=== PATIENT | female | born 1985 | race Caucasian/White ===

== ENCOUNTER 2021-01-28 19:07 | Inpatient (IN) | payer OTHER ==
[~2021-01-28] VITALS: Ht 160 cm; Wt 84.4 kg
[2021-01-28] MEDS ORDERED: IV NS 0.9% 1,000 ML BAG IV ONE (19:30)
[2021-01-28] MEDS ORDERED: ONDANSETRON 4 MG TAB.RAPDIS PO ONE (19:30)
[2021-01-28] MEDS ORDERED: ONDANSETRON 4 MG TAB.RAPDIS ONE (19:30)
--- NOTE | 2021-01-28 19:30 | NUR ---
CALLED FOR COVID SWAB
--- NOTE | 2021-01-28 19:35 | NUR ---
blood and covid swab sample collected and sent to the lab.
[2021-01-28 19:46] LABS: BASOPHILS # (AUTO) 0.1 /CMM (0.0-0.2); BASOPHILS % (AUTO) 0.7 % (0.0-2.0); EOSINOPHILS % (AUTO) 1.7 % (0.0-6.0); HEMATOCRIT 39 % (33-45); HEMOGLOBIN 12.9 g/dL (11.5-14.8); LYMPHOCYTES # (AUTO) 2.4 /CMM (0.8-4.8); MEAN CORPUSCULAR HGB CONC 33 g/dl (31.0-36.0); MEAN CORPUSCULAR VOLUME 80 fL (82-100); MONOCYTES # (AUTO) 0.5 /CMM (0.1-1.30); MONOCYTES % (AUTO) 5.4 % (2.0-12.0); NEUTROPHILS # (AUTO) 6.8 /CMM (1.8-8.9); NEUTROPHILS % (AUTO) 68.2 % (43.0-81.0); PLATELET COUNT (AUTO) 381 /CMM (150-450); RED BLOOD CELL COUNT(AUTO) 4.85 MIL/uL (4.0-5.2)
[2021-01-28 20:01] LABS: ALANINE AMINOTRANSFERASE 22 U/L (12-78); ALBUMIN 3.6 g/dL (3.4-5.0); ALKALINE PHOSPHATASE 84 U/L (46-116); ASPARTATE AMINOTRANSFERASE 20 U/L (15-37); BILIRUBIN,DIRECT 0.1 mg/dL (0.0-0.2); BILIRUBIN,TOTAL 0.3 mg/dL (0.2-1.0); CALCIUM, SERUM 9.3 mg/dL (8.5-10.1); CARBON DIOXIDE 26 mmol/L (21-32); CHLORIDE 100 mmol/L (98-107); CREATININE 0.7 mg/dL (0.6-1.3); GLUCOSE 125 mg/dL (74-106); POTASSIUM 3.6 mmol/L (3.5-5.1); SODIUM SERUM 136 mmol/L (136-145); TOTAL PROTEIN, SERUM 7.8 g/dL (6.4-8.2); UREA NITROGEN, BLOOD 17 mg/dL (7-18)
--- NOTE | 2021-01-28 20:23 | NUR ---
Call from lab. Rapid covid negative.
[2021-01-28] MEDS ORDERED: HUM10VIA SQ (21:07)
[2021-01-28] MEDS ORDERED: ASPI-1420 PO (21:10)
[2021-01-28] MEDS ORDERED: METF-440 PO (21:10)
[2021-01-28 21:25] VITALS: BP 108/64
--- NOTE | 2021-01-28 21:25 | NUR ---
MS CADASTRAL ENGINEER NOTE RECEIVED PATIENT VIA GURNEY. AMBULATED WITH ASSISTANCE TO BED. A/OX4. TOLERATING ROOM AIR. RESPIRATIONS ARE EVEN AND UNLABORED. NO S/S SB NOTED. C/O PAIN IN RIGHT KNEE. CURRENTLY WEARING A KNEE RACE. STATES PAIN IS 6/10. DOES NOT WANT ANYTHING FOR PAIN MANAGEMENT. INFORMED ME SHE WILL CALL ME IF SHE WANTS PAIN MEDICATION. IN NO APPARENT DISTRESS. IV ACCESS IN LAC#18 PATENT AND SALINE LOCKED. SPRINKLER DRIVER OBTAINED VITAL SIGNS AND BELONGING LIST. INITIAL PHYSICAL ASSESSMENT COMPLETED AT THIS TIME. SKIN ASSESSMENT COMPLETED, SKIN INTACT. WILL OBTAIN CONSENT FOR PROCEDURE AD PLACE IN CHART. BED IS LOW AND LOCKED, HOB ELEVATED IN SEMI FOWLERS SIDE RAILS UP X2. CALL LIGHT WITHIN REACH. PROVIDED EDUCATION ON USE. WILL CONTINUE TO MONITOR THROUGHOUT SHIFT.
[2021-01-28] MEDS ORDERED: MAG HYDROX/AL HYDROX/SIMETH 30 ML UDC PO PRN (21:30)
[2021-01-28] MEDS ORDERED: ZOLPIDEM TARTRATE 5 MG TABLET PO PRN (21:30)
[2021-01-28] MEDS ORDERED: ONDANSETRON HCL/PF 4 MG/2 ML VIAL IVP PRN (21:30)
[2021-01-28] MEDS ORDERED: ACETAMINOPHEN 325 MG TABLET PO PRN (21:30)
[2021-01-28] MEDS ORDERED: MAGNESIUM HYDROXIDE 30 ML UDC PO PRN (21:30)
[2021-01-28] MEDS ORDERED: Z GUARD REMEDY 2 OZ OINT TP PRN (21:30)
--- NOTE | 2021-01-28 21:30 | NUR ---
Manny knutson in ED - 01/28/21 at 2233 by JONI PT TRANSFERED PER ACLS PROTOCOL
[2021-01-29] MEDS ORDERED: INSULIN REGULAR, HUMAN 100 UNIT/ML 3 ML VIAL SQ PRN
--- NOTE | 2021-01-29 | NUR ---
MS RN NOTE PLACED NPO SIGN OUTSIDE OF PATIENTS ROOM. CLEARED TABLE OF FOOD AND DRINKS. INFORMED PATIENT SHE IS NPO POST MIDNIGHT. PATIENT UNDERSTOOD. WILL CONTINUE TO MONITOR THROUGHOUT SHIFT.
[2021-01-29] MEDS: BLOOD SUGAR DIAGNOSTIC 1 EACH STRIP IN SCH ×4 (00:03→17:58)
--- NOTE | 2021-01-29 00:09 | NUR ---
MS RN NOTE ACCU CHECK Q6HR , 0000, BS 159 - NO INSULIN COVERAGE D/T NPO FOR SURGERY
--- NOTE | 2021-01-29 05:50 | NUR ---
ms rn note 0600 accu check bs 234 - no insulin coverage given d/t npo for surgery
[2021-01-29 05:51] LABS: BASOPHILS # (AUTO) 0.1 /CMM (0.0-0.2); BASOPHILS % (AUTO) 0.7 % (0.0-2.0); EOSINOPHILS % (AUTO) 2.1 % (0.0-6.0); HEMATOCRIT 35 % (33-45); HEMOGLOBIN 11.8 g/dL (11.5-14.8); MEAN CORPUSCULAR HGB CONC 34 g/dl (31.0-36.0); MEAN CORPUSCULAR VOLUME 80 fL (82-100); MONOCYTES # (AUTO) 0.5 /CMM (0.1-1.30); MONOCYTES % (AUTO) 5.1 % (2.0-12.0); NEUTROPHILS # (AUTO) 6.4 /CMM (1.8-8.9); NEUTROPHILS % (AUTO) 70.1 % (43.0-81.0); PLATELET COUNT (AUTO) 246 /CMM (150-450); RED BLOOD CELL COUNT(AUTO) 4.44 MIL/uL (4.0-5.2); WHITE BLOOD COUNT (AUTO) 9.1 K/uL (4.3-11.0)
[2021-01-29 06:02] LABS: CALCIUM, SERUM 8.2 mg/dL (8.5-10.1); CREATININE 0.7 mg/dL (0.6-1.3); MAGNESIUM 1.9 mg/dL (1.8-2.4); PHOSPHORUS 3.5 mg/dL (2.5-4.9); POTASSIUM 4.1 mmol/L (3.5-5.1)
[2021-01-29 06:21] LABS: THYROID STIMULATING HORMONE 1.34 uIU/mL (0.358-3.74)
--- NOTE | 2021-01-29 07:06 | NUR ---
MS RN CLOSING NOTE RESTING IN BED. A/OX4. TOLERATING ROOM AIR. NO RESP DISTRESS. C/O PAIN THAT PATIENT REQUESTED PAIN MEDICATION. NO DISTRESS. IV ACCESS MAINTAINED IN LAC#18. BED REMAINS LOW AND LOCKED, HOB ELEVATED IN SEMI FOWLERS SIDE RAILS UP X2. CALL LIGHT WITHIN REACH. WILL ENDORSE TO NEXT SHIFT.
[2021-01-29] MEDS: PANTOPRAZOLE 40 MG TABLET.DR PO SCH (07:30)
[2021-01-29] MEDS ORDERED: METFORMIN 500 MG TABLET PO SCH (07:30)
--- NOTE | 2021-01-29 07:30 | NUR ---
ms rn received on bed, awake,alert,oriented x4,not in any form of distress, s/p fall,site w/ immobilizer,knee swollen,denies pain at this time,all needs attended.
[2021-01-29] MEDS ORDERED: ATOR40TA PO (07:43)
[2021-01-29] MEDS ORDERED: HYDR-3972 PO (07:43)
[2021-01-29] MEDS ORDERED: IBUP-1955 PO (07:44)
[2021-01-29 08:00] VITALS: BP 105/68
--- NOTE | 2021-01-29 09:00 | NUR ---
ms reddy npo at this time.
[2021-01-29] MEDS ORDERED: ANESTHESIA TRAY IN PYXIS 1 EA TRAY MC ONE (10:44)
[2021-01-29] MEDS ORDERED: BACITRACIN 50000 UNITS/VIAL ONE (11:27)
[2021-01-29] MEDS ORDERED: BUPIVACAINE 0.5 % PF 150 MG/30 ML VIAL ONE (11:27)
--- NOTE | 2021-01-29 12:00 | NUR ---
ms rn went down for surgery of right knee orif.
[2021-01-29] MEDS ORDERED: MIDAZOLAM HCL 2 MG/2ML VIAL ONE (12:43)
[2021-01-29] MEDS ORDERED: FENTANYL PF 100MCG/2ML AMPUL ONE (12:43)
[2021-01-29] MEDS ORDERED: ROCURONIUM BROMIDE 50 MG/5 ML ONE (12:44)
[2021-01-29] MEDS ORDERED: HYDROMORPHONE 1 MG/1 ML DISP.SYRIN ONE (14:51)
[2021-01-29 16:00] VITALS: BP 123/78
[2021-01-29] MEDS: METFORMIN 500 MG TABLET PO SCH (17:58)
--- NOTE | 2021-01-29 18:00 | NUR ---
ms rn bs -427- coverage given and start on metformin,per md order.
--- NOTE | 2021-01-29 19:00 | NUR ---
ms rn on bed, no distress noted.
--- NOTE | 2021-01-29 19:30 | NUR ---
MS RN OPENING NOTE RECEIVED PATIENT IN BED. A/OX4. TOLERATING ROOM AIR. RESPIRATIONS ARE EVEN AND UNLABORED. NO S/S SOB NOTED. C/O PAIN IN RIGHT LEG, INFORMED WILL SEE WHEN PAIN MEDICATION IS DUE. IN NO APPARENT DISTRESS. IV ACCESS IN LAC#18. BED IS LOW AND LOCKED, HOB ELEVATED IN SEMI FOWLERS SIDE RAILS UP X2. CALL LIGHT WITHIN REACH. WILL CONTINUE TO MONITOR THROUGHOUT SHIFT.
[2021-01-29 20:00] VITALS: BP 118/72
[2021-01-29] MEDS: ANCEF 1 GM/50 ML D5W IV SCH ×2 (20:35)
[2021-01-29] MEDS: HYDROCODONE/APAP 5/325MG TABLET PO PRN (20:38)
--- NOTE | 2021-01-29 21:04 | NUR ---
RN NOTE PER SHIFT REPORT PATIENT BLOOD SUGAR WAS 427. 10 UNITS GIVEN WELL METFORMIN. DAY RN STATED RECHECK BLOOD SUGAR AT 2100. 2100 BLOOD SUGAR IS 419. REPEAT 436. PLACE A STAT GLUCOSE RANDOM READING. CALLED LAB TO INFORM THEM THE STAT ORDER. AWAITING RESULTS TO INFORM MD DIRECTOR OF PROGRAMMING. Addendum: 01/29/21 at 2209 by ESTEFANÍA CASTILLO RN MS MCCOY NOTE - please excuse the typo
--- NOTE | 2021-01-29 22:09 | NUR ---
MS RN NOTE LAB CALLED FOR A CRITICAL LAB BLOOD SUGAR 450. CALLED [employer]ULT[employer] CRAFT MAINTENANCE TECHNICIAN MD. DR. ROSANNA OREILYL TO INFORM HIM OF BLOOD SUGAR. INFORMED HIM OF CURRENT SLIDING SALE. PATIENT ALSO FEELS VERY THIRSTY WELL FEET BURNING. MD STATED TO CHANGE SLIDING SCALE TO MODERATE SLIDING SCALE. MD ORDERS READ BACK NOTED AND CARRIED OUT.
[2021-01-29] MEDS: BLOOD SUGAR DIAGNOSTIC 1 EACH STRIP VI SCH (22:19)
[2021-01-29] MEDS ORDERED: DEXTROSE 50%-WATER 50 ML DISP.SYRIN IV PRN ×2 (22:30)
[2021-01-29] MEDS ORDERED: *INSULIN REGULAR(HUMULIN R)HUM 100 UNIT/ML VIAL SQ PRN (22:30)
[2021-01-29] MEDS: MORPHINE SULFATE INJ 2 MG/ML DISP.SYRIN IV PRN (22:55)
[2021-01-30] MEDS: HYDROCODONE/APAP 5/325MG TABLET PO PRN ×4 (01:11→20:41)
[2021-01-30] MEDS: MORPHINE SULFATE INJ 2 MG/ML DISP.SYRIN IV PRN ×2 (03:16→10:16)
[2021-01-30] MEDS: ANCEF 1 GM/50 ML D5W IV SCH ×2 (04:46)
[2021-01-30] MEDS: BLOOD SUGAR DIAGNOSTIC 1 EACH STRIP VI SCH ×4 (06:00→21:27)
[2021-01-30] MEDS: INSULIN REGULAR, HUMAN 100 UNIT/ML 3 ML VIAL SQ PRN ×3 (06:05→17:20)
--- NOTE | 2021-01-30 07:03 | NUR ---
MS RN CLOSING NOTE PATIENT RESTING IN BED. A/OX4. TOLERATING ROOM AIR. NO RESP DISTRESS.MANAGED PAIN WITH NORCO AND MORPHINE. NO DISTRESS. IV ACCESS MAITAINED IN LAC#18. BED REMAINS LOW AND LOCKED, HOB ELEVATED IN SEMI FOWLERS SIDE RAILS UP X2. CALL LIGHT WITHIN REACH. WILL ENDORSE TO ONCOMING SHIFT.
--- NOTE | 2021-01-30 07:17 | NUR ---
MS RN NOTES PATIENT IN BED ALERT ORIENTED X 4. NO ACUTE DISTRESS NOTED. BREATHING UNLABORED. IV ACCESS PATIENT AND INTACT, NO REDNESS , NO SWELLING NOTED. RIGHT LOWER EXTREMITY SURGICAL DRESSING CLEAN DRY AND INTACT WITH BRACE ON, NO BLEEDING NOTED. SAFETY MEASURES IN PLACE. CALL LIGHT WITHIN REACH. WILL CONTINUE TO MONITOR ACCORDINGLY
[2021-01-30] MEDS: PANTOPRAZOLE 40 MG TABLET.DR PO SCH (07:45)
[2021-01-30 08:00] VITALS: BP 115/71
[2021-01-30] MEDS: METFORMIN 500 MG TABLET PO SCH ×2 (08:54→17:14)
--- NOTE | 2021-01-30 09:17 | NUR ---
MS RN NOTES CLARIFIED DIET ORDER WITH DR CHRISTOPH SIU WITH NEW ORDER FOR DIABETIC DIET , ORDER CLARIFIED AND READBACK WITH MD, NOTED AND CARRIED OUT
[2021-01-30 16:00] VITALS: BP 122/74
--- NOTE | 2021-01-30 19:00 | NUR ---
MS RN NOTES PATIENT IN BED ALERT ORIENTED X 4. NO ACUTE DISTRESS NOTED. BREATHING UNLABORED. IV ACCESS PATIENT AND INTACT, NO REDNESS , NO SWELLING NOTED. RIGHT LOWER EXTREMITY SURGICAL DRESSING CLEAN DRY AND INTACT WITH BRACE ON, NO BLEEDING NOTED. NEEDS ATTENDED AND ANTICIPATED. SAFETY MEASURES IN PLACE. CALL LIGHT WITHIN REACH. WILL ENDORSE TO NIGHT NURSE FOR CONTINUITY OF CARE.
--- NOTE | 2021-01-30 19:45 | NUR ---
MS RN NOTES RECEIVED ON BED A/O X4,NO SOB,S/O EIGHT KNEE SURGERY,DRESSING INTACT AND DRY,KNEE IMMOBILIZER IN USED.SALINE LOCK LEFT AC INTACT AND PATENT.PAIN TOLERABLE AT THE MOMENT.CALL LIGHT IN REACH,NEEDS ANTICIPATED.
[2021-01-30 20:00] VITALS: BP 109/70
--- NOTE | 2021-01-30 20:41 | NUR ---
MS RN NOTES PAIN MANAGEMENT C/O RIGHT KNEE PAIN, 6/20 ON PAIN SCALE, MEDICATED WITH NORCO 5/325MG,1 TAB PO ORDERED FOR MODERATE PAIN.
--- NOTE | 2021-01-30 22:00 | NUR ---
MS RN NOTES ACCU-CHECK BLOOD SUGAR CHECK 114,NO INSULIN COVERAGE.
--- NOTE | 2021-01-31 01:00 | NUR ---
MS RN NOTES SOUND ASLEEP,WITH NORMAL BREATHING PATTERN
[2021-01-31] MEDS: BLOOD SUGAR DIAGNOSTIC 1 EACH STRIP VI SCH ×3 (05:23→17:50)
--- NOTE | 2021-01-31 05:47 | NUR ---
MS RN NOTES ACCU-CHECK BLOOD SUGAR CHECK 264,COVERED WITH HUMULIN R 9 UNITS PER AC MODERATE SLIDING SCALE.
[2021-01-31] MEDS: INSULIN REGULAR, HUMAN 100 UNIT/ML 3 ML VIAL SQ PRN ×2 (05:49→11:50)
--- NOTE | 2021-01-31 06:43 | NUR ---
MS RN NOTES AWAKE,AMBULATE TO THE RESTROOM
--- NOTE | 2021-01-31 06:45 | NUR ---
MS RN NOTES PAIN MANAGEMENT EFFECTIVE,PAIN TOLERABLE THIS TIME.DRESSING TO RIGHT KNEE REMAINS INTACT AND DRY.CALL LIGHT IN REACH,NEEDS ATTENDED.
[2021-01-31] MEDS: PANTOPRAZOLE 40 MG TABLET.DR PO SCH (07:48)
[2021-01-31 07:59] VITALS: BP 128/84
--- NOTE | 2021-01-31 08:00 | NUR ---
RN Opening note Received patient in bed AO x 4, patient s/p patella ORIF denies pain except repositioned and actively, skin is warm to touch keep clean/dry, intact IV site on left AC 18g. Respiratory even and unlabored on room air, no sob or distress observed. Kept elevated HOB for ensure airway and aspiration precaution also lowered bed position for safe. Call light within reach, will continue to monitor for safety.
[2021-01-31] MEDS: METFORMIN 500 MG TABLET PO SCH ×2 (08:52→17:50)
[2021-01-31] MEDS: MORPHINE SULFATE INJ 2 MG/ML DISP.SYRIN IV PRN (15:01)
[2021-01-31 16:00] VITALS: BP 117/79
--- NOTE | 2021-01-31 17:30 | NUR ---
Patient discharge to home, given discharge instruction include quill picking machine operator prescription meds/side effect, also administered flue shot given information about side effects and benefits. Patient in stable condition left room escorted by staff to the private car.
--- NOTE | 2021-01-31 18:49 | NUR ---
RN Closing note Patient on bed resting, no appears distress or discomfort. Patient discharge to home, given discharge instruction include and information about home health [facility] and [facility]. Patient in stable condition, skin is warm to touch, keep clean/dry. Respiratory even and unlabored on chiara air. Keep elevated HOB for ensure airway and aspiration precaution, also lowest bed position for safety. Call light within reach, will endorse to date night sitter.
== END 2021-01-31 19:25 | disposition home health service (06) | DRG 517 ==
LOC: ER 19:17 → MED 20:22
PROVIDERS: ADMIT Registered Nurse; ATTEND Internal Medicine
PROC: 0QSD04Z Reposition Right Patella with Internal Fixation Device, Open Approach (ICD-10-PCS; principal; 2021-01-29)
DX: S82.001A Unspecified fracture of right patella, initial encounter for closed fracture (principal); E66.9 Obesity, unspecified; Z68.32 Body mass index [BMI] 32.0-32.9, adult; E11.9 Type 2 diabetes mellitus without complications; W01.0XXA Fall on same level from slipping, tripping and stumbling without subsequent striking against object, initial encounter; Y93.9 Activity, unspecified; Y92.89 Other specified places as the place of occurrence of the external cause; Z79.84 Long term (current) use of oral hypoglycemic drugs; Z79.4 Long term (current) use of insulin; Z20.822 Contact with and (suspected) exposure to COVID-19
CPT/HCPCS: 36415; 71045-TC; 73562-TC; 80048-TC; 80061-TC; 80076-TC; 82945-TC; 82962-TC; 83735-TC; 83880; 84100-TC; 84443-TC; 84484-TC; 84703-TC; 85025-TC; 85730-TC; 87081-TC; 97116-TC; 97530-TC; C1713; G0378; J0690; J1100; J1170; J1815; J2250; J2270; J2704; J3010; J3490; J7030; J7050; J7060; Q0162

== ENCOUNTER 2021-05-07 19:56 | Inpatient (IN) | payer OTHER ==
[~2021-05-07] VITALS: Ht 160 cm; Wt 82.6 kg
[~2021-05-07 19:56] MED LIST: ASPI-1420 PO; ATOR40TA PO; HUM10VIA SQ; HYDR-3972 PO; IBUP-1955 PO; METF-440 PO
--- NOTE | 2021-05-07 20:49 | NUR ---
MS MLT NOTE PT TRANSPORTED VIA WHEELCHAIR TO UNIT AT THIS TIME. PT ADMITTED FOR ORIF RIGHT PATELLA SURGERY ON 05/08/21. DR. JOHNSON WILL BE PERFORMING THE CASE. A/O X4. PT STABLE ON ROOM AIR. NO SOB OR S/S OF RESPIRATORY DISTRE/SS NOTED. PT DENIES PAIN OR DISCOMFORT AT THIS TIME. PT STATED THAT SHE HAS BEEN NPO SINCE 1830 ON 05/07/21. LAST VOID AND BM ON 05/07/21. PT'S SKIN IS INTACT. BRACE NOTED ON RIGHT KNEE. PT ORIENTED TO STAFF, ROOM, AND UNIT. BELONGINGS ACCOUNTED FOR AND BELONGINGS LIST SIGNED BY PT. SAFETY PRECAUTIONS IN PLACE AND MAINTAINED AT ALL TIMES. BED IN LOWEST LOCKED POSITION, HOB ELEVATED, SIDE RAILS UP X2. CALL LIGHT AND TABLE WITHIN REACH. WILL CONTINUE TO MONITOR.
[2021-05-08] VITALS (9 sets, daily range): BP systolic 103–114; BP diastolic 58–76
[2021-05-08 04:49] LABS: BASOPHILS # (AUTO) 0.1 /CMM (0.0-0.2); BASOPHILS % (AUTO) 0.9 % (0.0-2.0); EOSINOPHILS % (AUTO) 2.4 % (0.0-6.0); HEMATOCRIT 34 % (33-45); HEMOGLOBIN 11.4 g/dL (11.5-14.8); LYMPHOCYTES # (AUTO) 2.4 /CMM (0.8-4.8); LYMPHOCYTES % (AUTO) 31.2 % (20.0-44.0); MEAN CORPUSCULAR HGB CONC 33 g/dl (31.0-36.0); MEAN CORPUSCULAR VOLUME 79 fL (82-100); MONOCYTES # (AUTO) 0.6 /CMM (0.1-1.30); MONOCYTES % (AUTO) 7.3 % (2.0-12.0); NEUTROPHILS # (AUTO) 4.5 /CMM (1.8-8.9); NEUTROPHILS % (AUTO) 58.2 % (43.0-81.0); PLATELET COUNT (AUTO) 333 /CMM (150-450); RED BLOOD CELL COUNT(AUTO) 4.34 MIL/uL (4.0-5.2); WHITE BLOOD COUNT (AUTO) 7.8 K/uL (4.3-11.0)
[2021-05-08 04:50] LABS: BILIRUBIN,URINE NEGATIVE (NEGATIVE); COLOR,URINE YELLOW (YELLOW); LEUKOCYTE ESTERASE ,URINE NEGATIVE (NEGATIVE); NITRITE, URINE NEGATIVE (NEGATIVE); PROTEIN,URINE NEGATIVE (NEGATIVE); UGLUCOSE >=1000 mg/dL (NEGATIVE); UROBILINOGEN,URINE 0.2 EU/dL (0.2)
[2021-05-08 04:55] LABS: CALCIUM, SERUM 8.3 mg/dL (8.5-10.1); CREATININE 0.7 mg/dL (0.6-1.3)
[2021-05-08 05:04] LABS: BACTERIA,URINE Few /HPF (None Seen); RBC,URINE 0-2 /HPF (0-2); SQUAMOUS EPITHELIAL CELL,UR Few /HPF (None Seen)
[2021-05-08] MEDS ORDERED: BUPIVACAINE 0.5 % PF 150 MG/30 ML VIAL ONE (07:19)
[2021-05-08] MEDS ORDERED: BACITRACIN 50000 UNITS/VIAL ONE (07:19)
[2021-05-08] MEDS ORDERED: VANCOMYCIN 1 GM VIAL ONE (07:19)
--- NOTE | 2021-05-08 07:40 | NUR ---
MS RN OPENING NOTES RECEIVED PATIENT ASLEEP, EASY TO AROUSE. ALERT AND ORIENTED X 4. PATIENT GOING FOR ORIF RIGHT PATELLA TODAY. PATIENT ON RA TOLERATING WELL. NO SIGNS OF DISTRESS. BREATHING IS EVEN AND UNLABORED. IV ACCESS R WRIST#22 PATENT AND INTACT. BED MAINTAINED ON LOWEST POSITION AND LOCKED WITH SIDE RAILS UP X 2. CALL LIGHT IS WITHIN REACH. WILL CONTINUE TO MONITOR THROUGHOUT SHIFT.
--- NOTE | 2021-05-08 09:05 | NUR ---
MS RN NOTES PATIENT WAS TRANSPORTED OUT OF UNIT TO OPERATING ROOM WITH STABLE VITAL SIGNS BY PAT, RN AND ONE OTHER STAFF MEMBER.
[2021-05-08] MEDS ORDERED: FENTANYL PF 250MCG/5ML AMPUL ONE (09:50)
[2021-05-08] MEDS ORDERED: MIDAZOLAM HCL 2 MG/2ML VIAL ONE (09:50)
[2021-05-08] MEDS ORDERED: HYDROMORPHONE INJ 2 MG/ML DISP.SYRIN ONE (09:50)
[2021-05-08] MEDS ORDERED: GLYCOPYRROLATE 0.2 MG/ML VIAL ONE (10:17)
[2021-05-08] MEDS ORDERED: FENTANYL PF 100MCG/2ML AMPUL ONE (11:43)
--- NOTE | 2021-05-08 12:40 | NUR ---
MS RN NOTES PATIENT RETURNED FROM SURGERY ACCOMPANIED BY PAT, SWITCH COUPLER NURSE AND ONE OTHER STAFF MEMBER. VITAL SIGNS STABLE. WILL CONTINUE TO MONITOR THROUGHOUT SHIFT.
[2021-05-08] MEDS ORDERED: INSULIN REGULAR, HUMAN 100 UNIT/ML 3 ML VIAL SQ PRN (13:30)
[2021-05-08] MEDS ORDERED: MAGNESIUM HYDROXIDE 30 ML UDC PO PRN (13:30)
[2021-05-08] MEDS ORDERED: DEXTROSE 50%-WATER 50 ML DISP.SYRIN IV PRN (13:30)
[2021-05-08] MEDS ORDERED: Z GUARD REMEDY 2 OZ OINT TP PRN (13:30)
[2021-05-08] MEDS ORDERED: MAG HYDROX/AL HYDROX/SIMETH 30 ML UDC PO PRN (13:30)
[2021-05-08] MEDS ORDERED: ONDANSETRON HCL/PF 4 MG/2 ML VIAL IVP PRN (13:30)
[2021-05-08] MEDS ORDERED: ZOLPIDEM TARTRATE 5 MG TABLET PO PRN (13:30)
[2021-05-08] MEDS ORDERED: ACETAMINOPHEN 325 MG TABLET PO PRN (13:30)
[2021-05-08] MEDS ORDERED: HYDROCODONE/APAP 5/325MG TABLET PO PRN (13:30)
[2021-05-08] MEDS: MORPHINE SULFATE INJ 2 MG/ML DISP.SYRIN IV PRN ×2 (14:47→21:25)
[2021-05-08] MEDS ORDERED: IBUPROFEN 600 MG TABLET PO PRN (16:30)
[2021-05-08] MEDS: BLOOD SUGAR DIAGNOSTIC 1 EACH STRIP VI SCH ×2 (17:31→22:04)
[2021-05-08] MEDS ORDERED: ATORVASTATIN 40 MG TABLET PO SCH (18:00)
[2021-05-08] MEDS: INSULIN NPH/REG 70/30 MIX INJ 100 UNIT/ML VIAL SQ SCH (18:07)
--- NOTE | 2021-05-08 19:05 | NUR ---
MS RN CLOSING NOTES PATIENT ASLEEP IN BED, EASY TO AROUSE. ALERT AND ORIENTED X 4.. NO SIGNS OR SYMPTOMS OF DISTRESS. PAIN LEVEL AT 6/10. MOTRIN GIVEN @1737. ON RA TOLERATING WELL. BREATHING IS EVEN AND UNLABORED. IV ACCESS R WRIST#22 PATENT AND INTACT. BED MAINTAINED ON LOWEST POSITION AND LOCKED WITH SIDE RAILS UP X 2. CALL LIGHT IS WITHIN REACH. WILL ENDORSE CONTINUITY OF CARE TO NIGHT NURSE.
--- NOTE | 2021-05-08 19:35 | NUR ---
MS RN NOTES RECEIVED LYING COMFORTABLY ON BED,S/P SURGERY ON THE RIGHT KNEE,DRESSING INTACT AND DRY AND WITH KNEE IMMOBILIZER.PAIN TOLERABLE AT MOMENT,SALINE LOCK RIGHT WRIST INTACT AND PATENT.CALL LIGHT IN REACH,NEEDS ANTICIPATED.
--- NOTE | 2021-05-08 21:25 | NUR ---
MS RN NOTES PAIN MANAGEMENT C/O RIGHT KNEE PAIN 8/10 ON PAIN SCALE,MORPHINE 2MG IV GIVEN ORDERED.
--- NOTE | 2021-05-08 22:00 | NUR ---
MS RN NOTES ACCU-CHECK BLOOD SUGAR CHECK 82,NO INSULIN COVERAGE.
--- NOTE | 2021-05-09 00:12 | NUR ---
MS MCCOY NOTES PAIN MANAGEMENT AWAKE,C/O ABDOMINAL PAIN 8/ ON PAIN SCALE,DILAUDID 1MG IV GIVEN PER PATIENT REQUEST. Addendum: 05/09/21 at 3393 by NILS JAMES RN notes not for this patient
[2021-05-09] MEDS: BLOOD SUGAR DIAGNOSTIC 1 EACH STRIP VI SCH ×2 (05:30→11:50)
--- NOTE | 2021-05-09 05:44 | NUR ---
MS RN NOTES ACCU-CHECK BLOOD SUGAR CHECK 109,NO INSULIN COVERAGE PER SLIDING SCALE.
[2021-05-09 06:00] LABS: BASOPHILS # (AUTO) 0.1 /CMM (0.0-0.2); BASOPHILS % (AUTO) 0.7 % (0.0-2.0); EOSINOPHILS % (AUTO) 1.6 % (0.0-6.0); HEMATOCRIT 34 % (33-45); HEMOGLOBIN 11.3 g/dL (11.5-14.8); LYMPHOCYTES # (AUTO) 1.7 /CMM (0.8-4.8); LYMPHOCYTES % (AUTO) 19.2 % (20.0-44.0); MEAN CORPUSCULAR HGB CONC 34 g/dl (31.0-36.0); MEAN CORPUSCULAR VOLUME 79 fL (82-100); MONOCYTES # (AUTO) 0.7 /CMM (0.1-1.30); MONOCYTES % (AUTO) 7.9 % (2.0-12.0); NEUTROPHILS # (AUTO) 6.3 /CMM (1.8-8.9); NEUTROPHILS % (AUTO) 70.6 % (43.0-81.0); PLATELET COUNT (AUTO) 364 /CMM (150-450); RED BLOOD CELL COUNT(AUTO) 4.29 MIL/uL (4.0-5.2); WHITE BLOOD COUNT (AUTO) 8.9 K/uL (4.3-11.0)
[2021-05-09] MEDS: MORPHINE SULFATE INJ 2 MG/ML DISP.SYRIN IV PRN (06:21)
--- NOTE | 2021-05-09 06:21 | NUR ---
MS RN NOTES PAIN MANAGEMENT C/O RIGHT KNEE PAIN 9/10 ON PAIN SCALE AFTER USING BEDSIDE COMMODE.MEDICATED WITH MORPHINE 2MG IVP ORDERED AND PER PATIENT REQUEST.
[2021-05-09 06:23] LABS: CALCIUM, SERUM 8.2 mg/dL (8.5-10.1); CREATININE 0.8 mg/dL (0.6-1.3); MAGNESIUM 2.1 mg/dL (1.8-2.4); PHOSPHORUS 3.8 mg/dL (2.5-4.9); POTASSIUM 3.7 mmol/L (3.5-5.1)
--- NOTE | 2021-05-09 06:42 | NUR ---
MS RN NOTES IN BED DOZING OFF FROM PAIN MANAGEMENT,AROUSABLE TO VERBAL STIMULI,SALINE LOCK RIGHT WRIST REMAINS PATENT.KNEE IMMOBILIZER IN PLACE RIGHT KNEE.IN NO ACUTE DISTRESS.WILL ENDORSE TO DAY NURSE FOR CRISTOBAL.
--- NOTE | 2021-05-09 07:47 | NUR ---
MS RN OPENING NOTES PATIENT IS ON BED AWAKE ALERT AND ORIENTEDX4. TOLERATING ROOM AIR WELL WITH NO SOB. NO COMPLAINED OF PAIN NOTED AT THIS TIME. WILL CONTINUE TO MONITOR.
[2021-05-09 08:00] VITALS: BP 96/67
[2021-05-09] MEDS: INSULIN NPH/REG 70/30 MIX INJ 100 UNIT/ML VIAL SQ SCH (08:56)
[2021-05-09] MEDS ORDERED: ASPIRIN EC 81 MG TABLET.DR PO SCH (09:00)
[2021-05-09] MEDS ORDERED: ENOXAPARIN SODIUM 40 MG/0.4 ML DISP.SYRIN SQ SCH (09:00)
--- NOTE | 2021-05-09 10:22 | NUR ---
MS/RN NOTES DR. JOHNSON ORDER PHYSICAL THERAPY EVALUATION WEIGHT BEARING TOLERATED. NOTED AND CARRIED OUT.
--- NOTE | 2021-05-09 17:41 | NUR ---
MS/RN NOTES PATIENT IS ALERT AND ORIENTED X4. PATIENT IN ROOM AIR SATURATING WELL. PATIENT IN NO APPARENT RESPIRATORY DISTRESS NOTED. NO COMPLAINED OF PAIN NOTED AT THIS TIME. SEEN AND EXAMINED BY MD WITH ORDERS MADE AND CARRIED OUT. ALL DUE MEDICATIONS WAS GIVEN. DISCHARGED INSTRUCTIONS WAS GIVEN AND PATIENT VERBALIZED UNDERSTANDING. PATIENT LEFT THE HOSPITAL IN MEDICALLY STABLE CONDITION. BUNDLE TIER BY CHRISTIANO KNAPP VIA PRIVATE CAR.
== END 2021-05-09 17:00 | disposition home health service (06) | DRG 517 ==
LOC: MED 19:56
PROVIDERS: ADMIT Student in an Organized Health Care Education/Training Program; ATTEND Student in an Organized Health Care Education/Training Program
PROC: 0QSD04Z Reposition Right Patella with Internal Fixation Device, Open Approach (ICD-10-PCS; principal; 2021-05-08)
DX: S82.001A Unspecified fracture of right patella, initial encounter for closed fracture (principal); X58.XXXA Exposure to other specified factors, initial encounter; E11.9 Type 2 diabetes mellitus without complications; E78.5 Hyperlipidemia, unspecified; D64.9 Anemia, unspecified; Y93.9 Activity, unspecified; Y92.89 Other specified places as the place of occurrence of the external cause; Z20.822 Contact with and (suspected) exposure to COVID-19; Z79.84 Long term (current) use of oral hypoglycemic drugs
CPT/HCPCS: 36415; 73560-TC; 80048-TC; 81001; 82962-TC; 83735-TC; 84100-TC; 84703-TC; 85025-TC; 85610-TC; 85730-TC; 86850-TC; 87081-TC; 97112-TC; 97116-TC; 97530-TC; C1713; G0378; J0690; J1170; J1650; J1815; J1885; J2250; J2270; J2704; J2765; J3010; J3370; J3490